=== PATIENT | male | born 1955 | race Caucasian/White ===

== ENCOUNTER 2018-02-11 16:22 | Emergency (ER) | payer OTHER ==
[~2018-02-11] VITALS: Ht 188 cm; Wt 187.8 kg
[2018-02-11] MEDS ORDERED: VENTOLIN HFA18 GM INH (17:26)
[2018-02-11] MEDS ORDERED: LIPITOR40 MG PO (17:27)
[2018-02-11] MEDS ORDERED: ASPIRIN81 MG PO (17:27)
[2018-02-11] MEDS ORDERED: BENADRYL25 MG PO (17:27)
[2018-02-11] MEDS ORDERED: B-121000 MC2 PO (17:28)
[2018-02-11] MEDS ORDERED: VITAMIN D35000 UNIT PO (17:28)
[2018-02-11] MEDS ORDERED: MULTI VITAMIN1 EACH PO (17:29)
[2018-02-11] MEDS ORDERED: DICLOFONO2.5 GM (17:30)
[2018-02-11] MEDS ORDERED: OMEGA 3 1,0001 EACH PO (17:30)
[2018-02-11] MEDS ORDERED: IBUPROFEN200 M1 PO (17:31)
[2018-02-11] MEDS ORDERED: ISOSORBIDE MONO30 MG PO (17:32)
[2018-02-11] MEDS ORDERED: LASIX40 MG PO (17:35)
[2018-02-11] MEDS ORDERED: FOLIC ACID1 MG PO (17:35)
[2018-02-11] MEDS ORDERED: METOPROLOL TART25 MG PO (17:36)
[2018-02-11] MEDS ORDERED: LANTUS100 UNITS/ SUB-Q (17:36)
[2018-02-11] MEDS ORDERED: NITROSTAT0.4 MG SL (17:37)
[2018-02-11] MEDS ORDERED: OMEPRAZOLE20 MG PO (17:38)
[2018-02-11] MEDS ORDERED: NOVOLOG100 UNIT/2 (17:38)
[2018-02-11] MEDS ORDERED: PERCOCET 5-3251 EACH PO (17:39)
[2018-02-11] MEDS ORDERED: ALDACTONE100 MG PO (17:40)
[2018-02-11] MEDS ORDERED: TRIAMCINOLONE A15 G2 TOP (17:41)
[2018-02-11] MEDS ORDERED: DOXYCYCLINE HY100 MG PO (17:42)
== END 2018-02-11 20:13 | disposition short-term general hospital (02) ==
LOC: ED 16:22
DX: L27.0 Generalized skin eruption due to drugs and medicaments taken internally (principal); T36.4X5A Adverse effect of tetracyclines, initial encounter; E11.9 Type 2 diabetes mellitus without complications; I10 Essential (primary) hypertension; E66.01 Morbid (severe) obesity due to excess calories; Z79.4 Long term (current) use of insulin; Z79.899 Other long term (current) drug therapy; Z79.82 Long term (current) use of aspirin; Z88.1 Allergy status to other antibiotic agents; Z88.0 Allergy status to penicillin; Z88.8 Allergy status to other drugs, medicaments and biological substances
CPT/HCPCS: 80053; 83605; 85025; 96365; 99283